=== PATIENT | male | born 1950 | race Caucasian/White ===

== ENCOUNTER 2021-12-19 11:28 | Emergency (ER) | payer MEDICARE, SELFPAY ==
--- NOTE | ~2021-12-19 | US_ITS ---
EXAMINATION: US VENOUS ULTRASOUND WITH DOPPLER LOWER EXTREMITY, RIGHT CLINICAL INFORMATION: Cold to touch, pain. COMPARISON: None TECHNIQUE: Ultrasound of the deep veins is performed from the hip to the calf with compression sonography and color and pulse Doppler assessment. Spectral analysis with color-flow imaging is performed. FINDINGS: There is normal venous compression and respiratory variation and augmented flow. The visualized common femoral vein, superficial femoral vein, profunda femoral vein, popliteal vein, and the trifurcation region shows no evidence of deep venous thrombosis. No right popliteal cyst. The subcutaneous soft tissues are unremarkable. US/US venous duplex LE RT IMPRESSION: No evidence for deep venous thrombosis in the visualized veins of the right lower extremity.
--- NOTE | ~2021-12-19 | US_ITS ---
EXAMINATION: Right LOWER EXTREMITY DUPLEX CLINICAL INFORMATION: Pain, cold touch COMPARISON: None TECHNIQUE: Real-time ultrasound and Doppler techniques (integrating B-mode 2-D vascular images, Doppler spectral analysis and color flow Doppler imaging) were utilized to interrogate the lower extremities. FINDINGS: RIGHT LEG: Common femoral artery: 136 cm/s, multiphasic Profunda femoris artery: 63.4 cm/s, multiphasic Superficial femoral artery (proximal): At the origin of the proximal superficial femoral artery peak systolic velocity 86.7 cm/s. There is multiphasic flow. Shortly thereafter, there is decreased velocity, loss of phasicity and minimal to no flow within the mid to distal femoral artery. There is gnosticist of flow to the popliteal artery with peak systolic velocity Proximal popliteal artery: 13.8 cm/s, monophasic Distal popliteal artery: 97.6 cm/s, monophasic Anterior tibial artery: No Doppler signal, possibly occluded Peroneal artery: No Doppler signal, possibly occluded US/US arterial duplex LE RT IMPRESSION: There is abrupt loss of Doppler signal beyond the level the proximal superficial femoral artery compatible with thrombosis/occlusion of the superficial femoral artery. There is some gnosticist of monophasic flow within the popliteal artery likely via collaterals, though Doppler signal cannot be visualized in the runoff vessels either secondary to limited inflow or occlusion.
[2021-12-19 11:33] VITALS: BP 152/74; PULSE 63; RESP 18; TEMP 37.2; O2SAT 97; BMI 18.1
[2021-12-19 13:11] VITALS: BP 169/65; PULSE 60; RESP 14; TEMP 36.5; O2SAT 97
[2021-12-19] MEDS: Morphine Sulfate 4 MG/ML CARTRIDGE IVPUSH ×2 (13:46→16:28)
--- NOTE | 2021-12-19 13:50 | ED.EXTPRO ---
HPI - Extremity Problem General Chief complaint: Extremity Problem Stated complaint: R foot pain/cold to touch Time Seen by Provider: 12/19/21 12:24 Source: patient Mode of arrival: ambulatory Limitations: no limitations History of Present Illness HPI Narrative: 71-year-old male who presents emergency department for evaluation right calf, right foot pain and coldness discoloration of his right foot. Patient has a history of peripheral vascular disease in in June of 2021. He was treated by Dr Collier, [facility] in June of 2021. He states that he had a two stents placed. The patient states that approximately 2 weeks prior he developed pain in his right calf and right foot. He describes the pain is a constant cramping sensation which waxes and wanes in intensity. The pain is 5/10 at its worst. MD Complaint: extremity pain Onset (ago): week(s) (2) Pain Consistency: constant Location: right Severity scale (1-10): 8 Quality: burning and aching Radiation: none Relieving factors: nothing Exacerbating factors: nothing Related Data Allergies Allergy/AdvReac Type Severity Reaction Status Date / Time No Known Allergies Allergy Unverified 03/13/20 17:14 [No Known Allergies*] Review of Systems Review of Systems: Yes all other systems are reviewed and are negative [facility] Past Medical History [facility] Narrative: Past medical history: Hypertension, hyperlipidemia, GERD, stroke 10 years prior. Social history: Patient is . He smokes 8 cigars per day. He drinks alcohol occasionally. He denies drug use. Social History Social History Advance Directives: No Advance Directives Information Provided: No Physical Exam Vital Signs: Vital Signs: Last Vital Signs Temp 97.7 F 12/19/21 13:11 Pulse 60 12/19/21 13:11 Resp 14 12/19/21 13:11 BP 169/65 H 12/19/21 13:11 Pulse Ox 97 12/19/21 13:11 O2 Del Method 12/19/21 13:11 BMI result Body Mass Index 17.2 Const: General: cooperative and no acute distress Orientation/consciousness: oriented to person and oriented to place Limitations: no limitations HEENT: Head: Yes normal to inspection, Yes normocephalic and Yes atraumatic Ears: external ears normal General nose exam: Normal external nose present Face and sinus: Yes normal facial exam Mouth: Normal oral and palatal mucosa present Throat: Yes posterior oropharynx normal Eyes: General: appearance normal, both eyes and all related structures Pupils: Equal, round and reactive pupils present Neck: Neck: Yes normal visual inspection, Yes no lymphadenopathy, Yes trachea midline and Yes supple Chest: Chest palpation & inspection: normal inspection of the chest and normal palpation of entire chest wall Resp: Effort & Inspection: normal respiratory effort and able to speak in complete sentences Auscultation: clear to auscultation bilaterally Cardio: Rate: regular rate Rhythm: regular rhythm Heart sounds: S1 normal heart sound present, S2 normal heart sound present and no murmurs GI: Inspection: Yes normal to inspection Palpation (GI): Soft to palpation, nontender and no guarding Auscultation: normal bowel sounds : General: Yes no CVA tenderness Back/Spine/Pelvis: Back: no CVA tenderness Skin: General skin exam: no rashes or lesions noted Neuro: General: oriented to person and oriented to place Cranial nerves: Yes CN's II-XII intact bilaterally and Yes Equal, round and reactive pupils present Cognition (Neuro): normal cognition Motor exam (neuro): 5/5 motor strength present throughout Extrem: Other: Patient has coolness to the lateral aspect of his right foot mainly over the right 4th and 5th toes with some slight discoloration of the right 5th toe, the whole foot is slightly cooler to touch than the left foot. No palpable pulses the patient's foot. Patient does have a palpable popliteal artery and palpable femoral artery bilaterally. Psych: Appearance: grossly normal Speech and movement: Normal speech and movement present Affect: normal affect Attitude: cooperative Thought process: Normal thought process present Thought content: Normal thought content present Course Course Course Narrative: 71-year-old male with history of peripheral vascular disease with 2 stents to his right leg done June [address] Brady Collier who presents emergency department for evaluation of right foot and right calf pain x2 weeks with coolness in his right foot compared to his left foot. The patient's vital signs revealed an elevated blood pressure of 152/74 otherwise were unremarkable. Patient's right foot was cool to the touch compared to the left with some slight discoloration of the right 5th toe. Laboratory evaluation including CBC, CMP, PT/INR, PTT, COVID-19 were ordered. Duplex venous ultrasound in duplex arterial ultrasound of the right lower extremity will be obtained. 1618: Laboratory evaluation: CBC revealed normal WBC 9200, normal H&H 15.2 and 43.7. PT/INR and PTT were normal. CMP was unremarkable except for an AST of 114. COVID-19 was negative. Radiology evaluation: Venous duplex ultrasound revealed no venous clot. Arterial duplex of the right lower extremity radiology impression below: There is abrupt loss of Doppler signal beyond the level the proximal superficial femoral artery compatible with thrombosis/occlusion of the superficial femoral artery. There is some jain of monophasic flow within the popliteal artery likely via collaterals, though Doppler signal cannot be visualized in the runoff vessels either secondary to limited inflow or occlusion. Dictated By: Guzman Kerr MD I did discuss the patient's presentation with our vascular surgeon, Dr. Smith who recommended the patient be started on heparin and transferred to a facility with vascular surgeon I also discuss the patient findings with Dr. Brady Collier who recommended that the patient be placed on heparin and transferred to either [facility]. I did contact [facility] at this time they cannot accept the patient in transfer. I did discuss the patient with Dr. Shay Chen, vascular surgeon at [facility] and he did accept the patient in transfer. The patient was given heparin and started on heparin bolus. He also received morphine 4 mg IV x2 L pain. He is also given a nicotine patch 21 mg. MDM - Extremity (Nontraumatic) Lab Data Result diagrams: 12/19/21 13:39 12/19/21 13:39 Labs: Lab Results 12/19/21 12/19/21 12/19/21 Range/Units 13:38 13:39 13:39 WBC 9.7 (4.8-10.8) X10*3/uL RBC 4.20 L (4.60-5.80) X10*6/uL Hgb 15.2 (14.0-18.0) g/dl Hct 43.7 (42.0-52.0) % MCV 104.0 H (80.0-98.0) fL MCH 36.2 H (27.0-33.0) pg MCHC 34.8 (31.0-36.0) g/dl RDW 17.1 H (11.0-16.0) % Plt Count 241 (160-400) X10*3/uL MPV 9.3 L (9.4-12.4) fL Immature Gran % (Auto) 0.6 H (0.0-0.4) % Neut % (Auto) 63.6 (45-73) % Lymph % (Auto) 19.9 L (20-40) % [place] % (Auto) 12.3 H (2-11) % Eos % (Auto) 2.6 (0-4) % Baso % (Auto) 1.0 (0-2) % Lymph # (Auto) 1.9 (1.2-4.9) X10*3/uL [place] # (Auto) 1.2 (0.1-1.2) X10*3/uL Eos # (Auto) 0.3 (0.0-0.4) X10*3/uL Baso # (Auto) 0.1 (0.0-0.2) X10*3/uL Abs Immat Gran (auto) 0.06 H (0.00-0.03) X10*3/uL Absolute Neuts (auto) 6.1 (2.0-8.3) x10*3/uL Absolute Nucleated RBC 0.000 (0.0-0.012) X10*3/uL Nucleated RBC % (auto) 0.0 (0.0-0.2) /100WBC ESR 10 (0-15) MM/HR PT (9.9-13.0) SEC INR (0.9-1.1) APTT (24.1-38.0) SEC Sodium 136 (135-145) mmol/L Potassium 4.9 (3.3-5.1) mmol/L Chloride 102 (96-108) mmol/L Carbon Dioxide 24 (22-29) mmol/L Anion Gap 15 (12-20) BUN 11 (9-16) mg/dL Creatinine 0.86 (0.5-1.4) mg/dL Estim Creat Clear Calc 66.6 Estimated GFR > 60 Random Glucose 100 (60-115) mg/dL Lactic Acid (0.5-2.0) mmol/L Calcium 9.6 (8.4-10.2) mg/dL Total Bilirubin 0.4 (0.0-1.0) mg/dL AST 114 H (5-37) U/L ALT 34 (0-40) U/L Alkaline Phosphatase 64 (39-117) U/L C-Reactive Protein 0.48 (< or = 0.50) mg/dL Total Protein 8.0 (6.5-8.0) g/dL Albumin 4.3 (3.5-5.0) g/dL COVID-19 (LEO) (Negative) COVID-19 Clin Com 12/19/21 12/19/21 12/19/21 Range/Units 13:39 14:40 15:07 WBC (4.8-10.8) X10*3/uL RBC (4.60-5.80) X10*6/uL Hgb (14.0-18.0) g/dl Hct (42.0-52.0) % MCV (80.0-98.0) fL MCH (27.0-33.0) pg MCHC (31.0-36.0) g/dl RDW (11.0-16.0) % Plt Count (160-400) X10*3/uL MPV (9.4-12.4) fL Immature Gran % (Auto) (0.0-0.4) % Neut % (Auto) (45-73) % Lymph % (Auto) (20-40) % [place] % (Auto) (2-11) % Eos % (Auto) (0-4) % Baso % (Auto) (0-2) % Lymph # (Auto) (1.2-4.9) X10*3/uL [place] # (Auto) (0.1-1.2) X10*3/uL Eos # (Auto) (0.0-0.4) X10*3/uL Baso # (Auto) (0.0-0.2) X10*3/uL Abs Immat Gran (auto) (0.00-0.03) X10*3/uL Absolute Neuts (auto) (2.0-8.3) x10*3/uL Absolute Nucleated RBC (0.0-0.012) X10*3/uL Nucleated RBC % (auto) (0.0-0.2) /100WBC ESR (0-15) MM/HR PT 11.6 (9.9-13.0) SEC INR 1.0 (0.9-1.1) APTT 33.4 (24.1-38.0) SEC Sodium (135-145) mmol/L Potassium (3.3-5.1) mmol/L Chloride (96-108) mmol/L Carbon Dioxide (22-29) mmol/L Anion Gap (12-20) BUN (9-16) mg/dL Creatinine (0.5-1.4) mg/dL Estim Creat Clear Calc Estimated GFR Random Glucose (60-115) mg/dL Lactic Acid 1.1 (0.5-2.0) mmol/L Calcium (8.4-10.2) mg/dL Total Bilirubin (0.0-1.0) mg/dL AST (5-37) U/L ALT (0-40) U/L Alkaline Phosphatase (39-117) U/L C-Reactive Protein (< or = 0.50) mg/dL Total Protein (6.5-8.0) g/dL Albumin (3.5-5.0) g/dL COVID-19 ([facility]O) Negative (Negative) COVID-19 Clin Com See Note Critical Care Time Critical Care Time Critical Care Time: Yes Total Critical Care Time: 35 Attestation: Critical Care: The patient was critically ill with a high probability of imminent or life threatening deterioration. I spent greater than 30 minutes of discontinuous time evaluating the patient,delivering critical care at the bedside, discussing and evaluating pertinent data with consultants. Critical care time does not include time spent performing separately billable procedures or teaching. Total time spent performing critical care was 35 minutes. Discharge Plan Discharge Clinical Impression: Superficial femoral artery occlusion, Acute pain of right lower extremity, Acute pain of right foot Patient Disposition: [facility] Transfer Details: ED to medical/surgical floor [facility], excepting physician is Dr. Shay Chen
[2021-12-19 13:55] LABS: MANUAL DIFF FLAG NO
[2021-12-19 13:57] LABS: Basophils Absolute Auto 0.1 X10*3/uL (0.0-0.2); Eosinophils Absolute Auto 0.3 X10*3/uL (0.0-0.4); Eosinophils Percent Auto 2.6 % (0-4); Hematocrit 43.7 % (42.0-52.0); Hemoglobin 15.2 g/dl (14.0-18.0); Imm Gran Abs Auto 0.06 X10*3/uL (0.00-0.03); Imm Gran Pct Auto 0.6 % (0.0-0.4); Lymphocytes Absolute Auto 1.9 X10*3/uL (1.2-4.9); Lymphocytes Percent Auto 19.9 % (20-40); Mean Corpuscular HGB Conc 34.8 g/dl (31.0-36.0); Mean Corpuscular Hemoglobin 36.2 pg (27.0-33.0); Mean Platelet Volume 9.3 fL (9.4-12.4); Monocytes Absolute Auto 1.2 X10*3/uL (0.1-1.2); Monocytes Percent Auto 12.3 % (2-11); Neutrophils Absolute Auto 6.1 x10*3/uL (2.0-8.3); Neutrophils Percent Auto 63.6 % (45-73); Platelet Count 241 X10*3/uL (160-400); Red Cell Distribution Width 17.1 % (11.0-16.0); White Blood Count 9.7 X10*3/uL (4.8-10.8)
[2021-12-19 14:01] LABS: Lactic Acid 1.1 mmol/L (0.5-2.0)
[2021-12-19 14:10] LABS: Alanine Aminotransferase 34 U/L (0-40); Albumin Level 4.3 g/dL (3.5-5.0); Alkaline Phosphatase 64 U/L (39-117); Anion Gap 15 (12-20); Aspartate Amino Transferase 114 U/L (5-37); Bilirubin Total 0.4 mg/dL (0.0-1.0); Blood Urea Nitrogen 11 mg/dL (9-16); C Reactive Protein 0.48 mg/dL (< or = 0.50); Calcium 9.6 mg/dL (8.4-10.2); Carbon Dioxide 24 mmol/L (22-29); Chloride 102 mmol/L (96-108); Creatinine Clr Calc Pharmacy 66.6; Estimated Glomerular Filt Rate > 60; Glucose Random 100 mg/dL (60-115); Potassium 4.9 mmol/L (3.3-5.1); Sodium 136 mmol/L (135-145)
[2021-12-19 14:36] LABS: Erythrocyte Sedimentation Rate 10 MM/HR (0-15)
[2021-12-19 15:04] LABS: Prothrombin Time 11.6 SEC (9.9-13.0)
--- NOTE | 2021-12-19 15:06 | PC.NURSE ---
Pt A&Ox4. Pt call [facility] in reach and needs are being met.
[2021-12-19 15:07] LABS: Partial Thromboplastin Time 33.4 SEC (24.1-38.0)
[2021-12-19 15:26] LABS: IDNOW Serial# 16C4AD1C
[2021-12-19 15:27] LABS: COVID-19 Test Negative (Negative)
[2021-12-19 15:28] VITALS: BMI 17.2
[2021-12-19] MEDS: Heparin Sodium,Porcine 5,000 UNIT/ML VIAL 4700 UNIT IVPUSH (15:36)
[2021-12-19] MEDS: Heparin Sodium,Porcine/1/2NS 25,000 UNIT/250 ML IV.SOLN 7.92 UNIT IVCONT (15:46)
[2021-12-19] MEDS: Nicotine 21 MG PATCH.TD24 TRANSDERMA (16:30)
--- NOTE | 2021-12-19 16:36 | ECG_ITS ---
Test Reason : TRANFER Blood Pressure : / mmHG Vent. Rate : 056 BPM Atrial Rate : 056 BPM P-R Int : 166 ms QRS Dur : 076 ms QT Int : 430 ms P-R-T Axes : 071 -23 066 degrees QTc Int : 414 ms Sinus bradycardia Possible Left atrial enlargement Borderline ECG When compared with ECG of 03-OCT-2014 08:46, No significant change was found Referred By: Luis Valencia Electronically Signed By:DAKOTA MONTANA MD
[2021-12-19 16:37] VITALS: BP 146/78; PULSE 63; RESP 20; TEMP 36.9; O2SAT 97
--- NOTE | 2021-12-19 16:43 | PC.NURSE ---
Patient alert and oriented x 3. ambulates independently at home. Patient started on heparin drip at 14units/kg/hr weight 56.6kg. Patient c/o pain in right lower leg 6/10 medicated with morphine awaiting relief. tele: sinus robin-sinus rythym 59-60's Patient instructed not to ambulate with DVT. Patient being transferred to [facility] M6 report called to Ayan BRADSHAW awaiting ambulance for transport.
--- NOTE | 2021-12-19 17:39 | PC.NURSE ---
This [employer] called [facility] tx line at 1550 per .awaiting a call back.At 1620 accepted pt,awaiting a call back from bed placement for a room assignment. Beds called at 1652,pt is going to M6 room 121B. [facility] was called for a ALS transfer at 1720,per . AT 1734 Guillermina from [facility] called and stated she has to pass the call to [facility], Awaiting ems arrival with an ETA of 20 to 35 mins per Guillermina from [facility]. and RN aware
--- NOTE | 2021-12-19 19:03 | PC.NURSE ---
At 1903 Pankaj came to transfer pt to [place] [address] room [address]B.
== END 2021-12-19 19:18 | disposition short-term general hospital (02) ==
PROVIDERS: Emergency Provider Emergency Medicine Emergency Medical Services; PCP Internal Medicine
DX: I77.1 Stricture of artery (principal); R60.0 Localized edema; M79.604 Pain in right leg; M79.671 Pain in right foot; Z20.822 Contact with and (suspected) exposure to COVID-19; Z79.899 Other long term (current) drug therapy
CPT/HCPCS: 36415; 80053; 83605; 85025; 85610; 85652; 85730; 86140; 87635; 93005; 93926; 93971; 96365; 96375; 96376; 99285; J2270

== ENCOUNTER 2025-02-08 08:17 | Emergency (ER) | payer MEDICARE, SELFPAY ==
--- OUTSIDE RECORDS SUMMARY | 2024-09-05 05:18 | XMS_ITS | Continuity of Care Document ---
Author Organization [facility]. If a dditional information is needed, contact Health Information Management at [phone] [place] [address] Phone Care Team Providers Care Cytotechnologist Name Role Phone Unavailable Unavailable Unavailable Unavailable Unavailable Unavailable Unavailable Unavailable Unavailable Unavailable Unavailable Unavailable Unavailable Unavailable Unavailable Unavailable Unavailable Results PROTHROMBIN TIME Ordered On:05-Sep-2024 Comments :FAX: [phone] 05-Sep-2024 10:03 INTERNATIONAL NORMAL IZED RATIO3.8(High) Range:0.8-1.1 Comments:Use INR for clinical decision makingRecommended Therapeutic Range:INDICATION TARGETED INR RANGEOn-x value (aortic position) 1.5-2.0Prevention and treatment of VTE 2.0-3.0Atrial Fibrillation 2.0-3.0Acute myocardial infarction 2.0-3.0Valvular heart disease 2.0-3.0Prosthetic tissue heart valves 2.5-3.5Recurrent Thromboembolism 2.5-3.5Targeted INR range of 2-3 is appropriate for patients whohave a mechanical bileaflet in the aortic position, normalcardiac chamber size, and no other risk factors for stroke.Co-administration of argatroban and warfarin produces acombined effect on INR. Consult pharmacist or physician todetermine if warfarin dose should be held when INR iselevated and patient is receiving argatroban. RZHAOLG72.9{Seconds}(High) Range :10{Seconds}-12.8{Seconds} Comments:New methodology, please review new reference ranges. PROTHROMBIN TIME Ordered On:30-Aug-2024 Comments: FAX: [phone] 30-Aug-2024 09:07 BYCMUXE13.5{Seconds}(High) Rang e:10{Seconds}-12.8{Seconds} Comments:New methodology, please review new reference ranges. INTERNATIONAL NORMAL IZED RATIO1.8(High) Range:0.8-1.1 Comments:Use INR for clinical decision makingRecommended Therapeutic Range:INDICATION TARGETED INR RANGEOn-x value (aortic position) 1.5-2.0Prevention and treatment of VTE 2.0-3.0Atrial Fibrillation 2.0-3.0Acute myocardial infarction 2.0-3.0Valvular heart disease 2.0-3.0Prosthetic tissue heart valves 2.5-3.5Recurrent Thromboembolism 2.5-3.5Targeted INR range of 2-3 is appropriate for patients whohave a mechanical bileaflet in the aortic position, normalcardiac chamber size, and no other risk factors for stroke.Co-administration of argatroban and warfarin produces acombined effect on INR. Consult pharmacist or physician todetermine if warfarin dose should be held when INR iselevated and patient is receiving argatroban. PROTHROMBIN TIME Ordered On:22-Aug-2024 08:51 INTERNATIONAL NORMAL IZED RATIO3.0(High) Range:0.8-1.1 Comments:Use INR for clinical decision makingRecommended Therapeutic Range:INDICATION TARGETED INR RANGEOn-x value (aortic position) 1.5-2.0Prevention and treatment of VTE 2.0-3.0Atrial Fibrillation 2.0-3.0Acute myocardial infarction 2.0-3.0Valvular heart disease 2.0-3.0Prosthetic tissue heart valves 2.5-3.5Recurrent Thromboembolism 2.5-3.5Targeted INR range of 2-3 is appropriate for patients whohave a mechanical bileaflet in the aortic position, normalcardiac chamber size, and no other risk factors for stroke.Co-administration of argatroban and warfarin produces acombined effect on INR. Consult pharmacist or physician todetermine if warfarin dose should be held when INR iselevated and patient is receiving argatroban. UPDMSVV27.3{Seconds}(High) Range :10{Seconds}-12.8{Seconds} Comments:New methodology, please review new reference ranges. PROTHROMBIN TIME Ordered On:15-Aug-2024 08:59 INTERNATIONAL NORMAL IZED RATIO1.5(High) Range:0.8-1.1 Comments:Use INR for clinical decision makingRecommended Therapeutic Range:INDICATION TARGETED INR RANGEOn-x value (aortic position) 1.5-2.0Prevention and treatment of VTE 2.0-3.0Atrial Fibrillation 2.0-3.0Acute myocardial infarction 2.0-3.0Valvular heart disease 2.0-3.0Prosthetic tissue heart valves 2.5-3.5Recurrent Thromboembolism 2.5-3.5Targeted INR range of 2-3 is appropriate for patients whohave a mechanical bileaflet in the aortic position, normalcardiac chamber size, and no other risk factors for stroke.Co-administration of argatroban and warfarin produces acombined effect on INR. Consult pharmacist or physician todetermine if warfarin dose should be held when INR iselevated and patient is receiving argatroban. HFDKSCI11.5{Seconds}(High) Range :10{Seconds}-12.8{Seconds} Comments:New methodology, please review new reference ranges. PROTHROMBIN TIME Ordered On:30-Jul-2024 08:32 INTERNATIONAL NORMAL IZED RATIO3.3(High) Range:0.8-1.1 Comments:Use INR for clinical decision makingRecommended Therapeutic Range:INDICATION TARGETED INR RANGEOn-x value (aortic position) 1.5-2.0Prevention and treatment of VTE 2.0-3.0Atrial Fibrillation 2.0-3.0Acute myocardial infarction 2.0-3.0Valvular heart disease 2.0-3.0Prosthetic tissue heart valves 2.5-3.5Recurrent Thromboembolism 2.5-3.5Targeted INR range of 2-3 is appropriate for patients whohave a mechanical bileaflet in the aortic position, normalcardiac chamber size, and no other risk factors for stroke.Co-administration of argatroban and warfarin produces acombined effect on INR. Consult pharmacist or physician todetermine if warfarin dose should be held when INR iselevated and patient is receiving argatroban. VNUTGMV63.2{Seconds}(High) Range :10{Seconds}-12.8{Seconds} Comments:New methodology, please review new reference ranges. PROTHROMBIN TIME Ordered On:16-Jul-2024 09:11 INTERNATIONAL NORMAL IZED RATIO2.6(High) Range:0.8-1.1 Comments:Use INR for clinical decision makingRecommended Therapeutic Range:INDICATION TARGETED INR RANGEOn-x value (aortic position) 1.5-2.0Prevention and treatment of VTE 2.0-3.0Atrial Fibrillation 2.0-3.0Acute myocardial infarction 2.0-3.0Valvular heart disease 2.0-3.0Prosthetic tissue heart valves 2.5-3.5Recurrent Thromboembolism 2.5-3.5Targeted INR range of 2-3 is appropriate for patients whohave a mechanical bileaflet in the aortic position, normalcardiac chamber size, and no other risk factors for stroke.Co-administration of argatroban and warfarin produces acombined effect on INR. Consult pharmacist or physician todetermine if warfarin dose should be held when INR iselevated and patient is receiving argatroban. BPKXIFI14.0{Seconds}(High) Range :10{Seconds}-12.8{Seconds} Comments:New methodology, please review new reference ranges. PROTHROMBIN TIME Ordered On:09-Jul-2024 09:14 INTERNATIONAL NORMAL IZED RATIO2.2(High) Range:0.8-1.1 Comments:Use INR for clinical decision makingRecommended Therapeutic Range:INDICATION TARGETED INR RANGEOn-x value (aortic position) 1.5-2.0Prevention and treatment of VTE 2.0-3.0Atrial Fibrillation 2.0-3.0Acute myocardial infarction 2.0-3.0Valvular heart disease 2.0-3.0Prosthetic tissue heart valves 2.5-3.5Recurrent Thromboembolism 2.5-3.5Targeted INR range of 2-3 is appropriate for patients whohave a mechanical bileaflet in the aortic position, normalcardiac chamber size, and no other risk factors for stroke.Co-administration of argatroban and warfarin produces acombined effect on INR. Consult pharmacist or physician todetermine if warfarin dose should be held when INR iselevated and patient is receiving argatroban. VLJDAAM00.7{Seconds}(High) Range :10{Seconds}-12.8{Seconds} Comments:New methodology, please review new reference ranges. PROTHROMBIN TIME Ordered On:06-Jul-2024 Comments :FAX: [phone] 06-Jul-2024 10:50 INTERNATIONAL NORMAL IZED RATIO5.8(Critical High) Range:0.8-1.1 Comments:CALLED RESULTS TO FRANK HENDERSON AT 1050BY IRLAMP2 ON 07/06/24.Were the results read back to the tech? YUse INR for clinical decision makingRecommended Therapeutic Range:INDICATION TARGETED INR RANGEOn-x value (aortic position) 1.5-2.0Prevention and treatment of VTE 2.0-3.0Atrial Fibrillation 2.0-3.0Acute myocardial infarction 2.0-3.0Valvular heart disease 2.0-3.0Prosthetic tissue heart valves 2.5-3.5Recurrent Thromboembolism 2.5-3.5Targeted INR range of 2-3 is appropriate for patients whohave a mechanical bileaflet in the aortic position, normalcardiac chamber size, and no other risk factors for stroke.Co-administration of argatroban and warfarin produces acombined effect on INR. Consult pharmacist or physician todetermine if warfarin dose should be held when INR iselevated and patient is receiving argatroban. HASTUWL37.0{Seconds}(High) Range :10{Seconds}-12.8{Seconds} Comments:New methodology, please review new reference ranges. Encounters Ambulatory Encounter Reason:z86.19 PRSNL HX OF TIA (TIA), AND CEREB INFRC W Encounter Diagnosis:Personal history of transient ischemic attack (TIA), and cerebral infarction without residual deficits 05-Sep-2024 09:[id number] 09:18 [facility] Discharge Disposition:Discharged to home or self care (routine discharge) Ambulatory Encounter Reason:Z86.73 PRSNL HX OF TIA (TIA), AND CEREB INFRC Encounter Diagnosis:[facility] (current) use of anticoagulants,Personal history of transient ischemic attack (TIA), and cerebral infarction without residual deficits 30-Aug-2024 08:[id number] 08:12 [facility] Discharge Disposition:Discharged to home or self care (routine discharge) Ambulatory Encounter Reason:LAB / ROUTINE Encounter Diagnosis:Personal history of transient ischemic attack (TIA), and cerebral infarction without residual deficits 22-Aug-2024 08:[id number] 08:07 [facility] Discharge Disposition:Discharged to home or self care (routine discharge) Ambulatory Encounter Reason:Z86.73 PRSNL HX OF TIA (TIA), AND CEREB INFRC Encounter Diagnosis:[facility] (current) use of anticoagulants,Personal history of transient ischemic attack (TIA), and cerebral infarction without residual deficits 15-Aug-2024 08:[id number] 08:07 [facility] Discharge Disposition:Discharged to home or self care (routine discharge) Ambulatory Encounter Reason:LAB Encounter Diagnosis:Peripheral vascular disease, unspecified,[facility] (current) use of anticoagulants,Unspecified sequelae of unspecified cerebrovascular disease,Encounter for therapeutic drug level monitoring 30-Jul-2024 08:[id number] 08:21 [facility] Discharge Disposition:Discharged to home or self care (routine discharge) Ambulatory Encounter Reason:LAB Encounter Diagnosis:[facility] (current) use of anticoagulants,Unspecified sequelae of unspecified cerebrovascular disease,Peripheral vascular disease, unspecified,Encounter for therapeutic drug level monitoring 16-Jul-2024 08:[id number] 08:42 [facility] Discharge Disposition:Discharged to home or self care (routine discharge) Ambulatory Encounter Reason:Z51.81 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:Personal history of transient ischemic attack (TIA), and cerebral infarction without residual deficits,exterminator (current) use of anticoagulants 09-Jul-2024 08:[id number] 08:35 [facility] Discharge Disposition:Discharged to home or self care (routine discharge) Ambulatory Encounter Reason:Z51.81 Z79.01 I69.90 I73.9 PERIPHERAL VASCULA Encounter Diagnosis:[facility] (current) use of anticoagulants,Personal history of transient ischemic attack (TIA), and cerebral infarction without residual deficits 06-Jul-2024 09:[id number] 09:22 [facility] Discharge Disposition:Discharged to home or self care (routine discharge) pre-admission 26-Sep-2023 08:00 [facility] pre-admission 28-Jul-2023 00:08 [facility] pre-admission 25-Oct-2022 08:30 [facility] pre-admission 25-Sep-2022 08:30 [facility] pre-admission 16-Sep-2022 09:00 [facility]
--- NOTE | ~2025-02-08 | XR_ITS ---
EXAMINATION: XR CHEST CLINICAL INFORMATION: sob COMPARISON: October 13, 2014 TECHNIQUE: Frontal view of the chest was obtained. FINDINGS: Hyperinflated lungs. Pulmonary reticular pattern. No consolidation, pleural fissure pneumothorax. Cardiomediastinal silhouette size is small. Mild multilevel thoracic spondylosis no fully evaluated. S-shaped curvature of the axial skeleton. XR/XR chest 1V IMPRESSION: COPD emphysematous type changes without gross acute airspace disease. Electronically signed by: Alfie Rodriguez MD 02/08/2025 08:43 AM EDT
--- NOTE | ~2025-02-08 | CT_ITS ---
EXAMINATION: CT CHEST ANGIOGRAPHY WITH IV CONTRAST INDICATION: sob + dimer COMPARISON: Comparison is made with the prior examination dated 10/03/2014. TECHNIQUE: Helical CT scan of the chest was performed following administration of intravenous contrast (65 mL Omnipaque 350). The contrast bolus was timed to optimally opacify the pulmonary arteries. Thin sections were obtained through the pulmonary arteries. Coronal and sagittal reformatted images were generated. 3D/MIP reconstructed images are also obtained and reviewed. This CT exam was performed with one or more of the following dose reduction techniques: automated exposure control, adjustment of the mA and/or kV according to patient size, use of iterative reconstruction technique. DLP: 164 mGy-cm CHEST: THYROID: The thyroid gland is unremarkable. PULMONARY ARTERIES: No intraluminal filling defects are identified within the pulmonary arteries to suggest pulmonary emboli. LUNGS: There is severe emphysema. No pulmonary nodules or airspace opacities are identified. MEDIASTINUM: There is no mediastinal lymphadenopathy. JERONIMO: There is no hilar lymphadenopathy. CARDIOVASCULATURE: The heart is normal in size. There is no pericardial effusion. The thoracic aorta is normal in caliber. DEGREE OF CORONARY CALCIFICATION: not evaluable, due to dense contrast in the coronary arteries. PLEURA: There is no pleural effusion. No pneumothorax. MAIN AIRWAYS: The mainstem bronchi and proximal branches are patent. AXILLA: There is no axillary lymphadenopathy. UPPER ABDOMEN: The visualized portions of the liver, spleen, and adrenals are unremarkable. BONES AND SOFT TISSUES: Unremarkable. CT/CT angio chest PE protocol IMPRESSION: 1. No evidence of pulmonary emboli. 2. Severe emphysema. Because severe emphysema is an independent risk factor for lung cancer, consider entering the patient into a program of yearly lung cancer screening with low dose chest CT. Electronically signed by: Mitchell Hoyos MD 02/08/2025 12:47 PM EDT
--- NOTE | 2025-02-08 08:22 | ECG_ITS ---
Test Reason : CP,SOB Blood Pressure : */* mmHG Vent. Rate : 62 BPM Atrial Rate : 62 BPM P-R Int : 158 ms QRS Dur : 80 ms QT Int : 408 ms P-R-T Axes : 81 -8 73 degrees QTcB Int : 414 ms Normal sinus rhythm Possible Left atrial enlargement Low voltage QRS Borderline ECG When compared with ECG of 19-Dec-2021 16:46, No significant change was found Referred By: Generic ED Physician Electronically Signed By: Cole Newsome
[2025-02-08 08:30] VITALS: PULSE 64; RESP 18; TEMP 36.6; O2SAT 99; BMI 16.1
[2025-02-08 08:57] LABS: MANUAL DIFF FLAG NO
[2025-02-08 08:59] LABS: Hematocrit 49.0 % (42.0-52.0); Hemoglobin 16.6 g/dl (14.0-18.0); Imm Gran Abs Auto 0.03 X10*3/uL (0.00-0.03); Imm Gran Pct Auto 0.3 % (0.0-0.4); Lymphocytes Absolute Auto 2.9 X10*3/uL (1.2-4.9); Mean Corpuscular HGB Conc 33.9 g/dl (31.0-36.0); Mean Corpuscular Hemoglobin 32.6 pg (27.0-33.0); Mean Corpuscular Volume 96.3 fL (80.0-98.0); NRBC Abs Auto 0.000 X10*3/uL (0.0-0.012); NRBC Pct Auto 0.0 /100WBC (0.0-0.2); Platelet Count 184 X10*3/uL (160-400); Red Blood Count 5.09 X10*6/uL (4.60-5.80); White Blood Count 10.3 X10*3/uL (4.8-10.8)
[2025-02-08 09:06] LABS: INTERNATIONAL NORM RATIO 3.7 (0.9-1.1); Prothrombin Time 42.6 SEC (10.9-12.4)
[2025-02-08 09:17] LABS: Alanine Aminotransferase 19 U/L (0-40); Albumin Level 4.5 g/dL (3.5-5.0); Alkaline Phosphatase 66 U/L (39-117); Anion Gap 14 (12-20); Aspartate Amino Transferase 36 U/L (5-37); Blood Urea Nitrogen 17 mg/dL (9-16); Calcium 9.4 mg/dL (8.4-10.2); Carbon Dioxide 27 mmol/L (22-29); Chloride 100 mmol/L (96-108); Creatinine Clr Calc Pharmacy 42.5; Estimated Glomerular Filt Rate > 60; Magnesium 1.9 mg/dL (1.6-2.6); Potassium 4.0 mmol/L (3.3-5.1); Sodium 137 mmol/L (135-145); Total Protein 8.1 g/dL (6.5-8.0)
--- OUTSIDE RECORDS SUMMARY | 2025-02-08 09:24 | XMS_ITS ---
Author Name [facility] Organization Unknown Care Team Organization Name Specialty Phone Email Start Date End Da te [facility] 03/03/2023 4 [facility] 05/04/2022 4
[2025-02-08 09:26] LABS: Troponin-I High Sensitivity 3.8 ng/L (<3.5-35.0)
[2025-02-08 09:29] LABS: B Type Natriuretic Peptide 94 pg/mL (<100)
--- NOTE | 2025-02-08 09:41 | ED_ITS ---
HPI - General Adult General Chief complaint: General Medical Stated complaint: CP, sob loss of apatite Time Seen by Provider: 02/08/25 08:41 Source: patient and family Mode of arrival: ambulatory Limitations: no limitations History of Present Illness ED Provider: CAMDEN Andrade HPI narrative: This is a 75-year-old male presenting with chest congestion, shortness of breath worse with exertion, fatigue, malaise, myalgia and diarrhea ongoing for the past 2 weeks. Denies sick contacts. Overall feeling unwell. Reports he is only drinking fluids however not eating anything by mouth. He denies fevers, chills, urinary issues, abdominal pain, flank pain, vision changes, dizziness, neck pain. Related Data Previous Rx's ?Medication ?Instructions ?Recorded albuterol sulfate 90 mcg/actuation 2 inh inhalation Q4 -6H PRN 02/08/25 breath activated powder inhaler shortness of breath or wheezing #1 ea doxycycline hyclate 100 mg capsule 100 mg PO BID 10 da ys #20 caps 02/08/25 prednisone 20 mg tablet 40 mg (2 x 20 mg) PO DAILY 5 days 02/08/25 #10 tabs Allergies Allergy/AdvReac Type Severity Reaction Status Date / Time No Known Allergies (No Known Allergy Verified 02/08/25 08:32 Allergies*) Review of Systems 2 Review of Systems: Yes all other systems are reviewed and are negative PMFSH Past Medical History Attestation statement: The following information was validated with the patient. Source: old records reviewed and nursing notes reviewed Social History Social History Alcohol intake: former Smoked in Last 30 Days: No Use of substances other than those prescribed or required for medical reasons: No Advance Directives: No Advance Directives Information Provided: Yes Do you have a plan to hurt others: No Plan Physical Exam ED Exam Exam: Appearance: Alert.? Oriented X3.? No acute distress.? Head: Normocephalic, atraumatic, no step-offs or deformities Eyes: Pupils equal, round and reactive to light.? ENT: Pharynx normal.? Neck: Normal inspection.? Neck supple.? CVS: Normal heart rate and rhythm.? Pulses normal.? Respiratory: No respiratory distress.? Breath sounds diminished bilaterally.? Abdomen: Soft and nontender.? Skin: Skin warm and dry.? Normal skin color.? Normal skin turgor.? Extremities: No lower extremity edema.? No calf ttp. 5/5 strength to bilateral upper and lower extremities Back: No midline tenderness, no C-spine tenderness, full range of motion, no CVA tenderness bilaterally Neuro: Oriented X 3.? No motor deficit.? No sensory deficit. CN 2-12 intact Vital Signs: Vital Signs - 24 hr 02/08/25 08:30 02/08/25 11:26 02/08/25 14:13 Temperature 97.8 F 97.5 F 97.1 F Pulse Rate 64 51 56 Respiratory Rate 18 16 17 Blood Pressure 162/73 H 149/85 H Pulse Oximetry 99 98 98 Oxygen Delivery Method Room Air Room Air Room Air BMI result Body Mass Index 16.1 Vital signs stable Course Reevaluation(s) Reevaluation #1: CBC unremarkable. Chemistry with slight elevation in BUN and creatinine likely secondary to poor p.o. intake/dehydration. D-dimer elevated CTA ordered urine clean. Urine toxicology negative. Ethanol negative. Chest x-ray showing COPD emphysematous changes without gross acute airspace disease. Time: 09:00 Reevaluation #2: Patient receiving IV fluids. Time: 10:30 Reevaluation #3: Chest CTA with no evidence of pulmonary emboli. Severe emphysema. Severe emphysema independent risk factor for lung cancer patient advised to follow up with PCP for this. His repeat chemistries much improved. Will have him follow up with PCP for this as well. Will treat him for bronchitis as he has been having upper respiratory symptoms for a few weeks. Time: 14:38 Medications Administered Discontinued Medications Generic Name Dose Route Start Last Admin Trade Name Clif PRN Reason Stop Dose Admin Sodium Chloride 1,000 mls @ 999 mls/hr 02/08/25 10:30 02/08/25 12:10 Ns IV 02/08/25 11:30 Infused .Q1H1M KITA Infusion Sodium Chloride 1,000 mls @ 999 mls/hr 02/08/25 13:00 02/08/25 14:22 Ns IV 02/08/25 14:00 Infused .Q1H1M KITA Infusion Iohexol 100 ml 02/08/25 12:22 02/08/25 12:22 Iohexol 350 Mg/Ml 100 Ml Infus..Btl IV 02/08/25 12:23 85 ml ONCE ONE Administration Medical Decision Making Medical Decision Making [facility] Narrative: 0950 75-year-old male presents with shortness of breath, chest congestion ongoing for the past few weeks. Physical exam diminished breath sounds bilaterally. History and physical exam concerning for viral illness versus COPD versus PE. Unlikely ACS, dissection. Will rule out metabolic derangements. Plan labs, viral testing, imaging. Differential Diagnosis Differential Diagnoses: The differential diagnosis associated with the presentation includes (History and physical exam concerning for viral illness versus COPD versus PE. Unlikely ACS, dissection. Will rule out metabolic derangements.) Admission/Observation Consideration of admission/observation: Escalation of care including admission/observation considered (Possible) Lab Data [facility] Lab Attestation statement: I reviewed the patient's lab results. 02/08/25 08:50 02/08/25 13:35 Labs: Lab Results 02/08/25 02/08/25 02/08/25 Range/Units 08:50 08:50 12:19 WBC 10.3 (4.8-10.8) X10*3/uL RBC 5.09 D (4.60-5.80) X10*6/uL Hgb 16.6 (14.0-18.0) g/dl Hct 49.0 (42.0-52.0) % MCV 96.3 (80.0-98.0) fL MCH 32.6 (27.0-33.0) pg MCHC 33.9 (31.0-36.0) g/dl RDW 14.6 (11.0-16.0) % Plt Count 184 (160-400) X10*3/uL MPV 9.9 (9.4-12.4) fL Immature Gran % (Auto) 0.3 (0.0-0.4) % Neut % (Auto) 58.2 (45-73) % Lymph % (Auto) 28.4 (20-40) % [place] % (Auto) 10.7 (2-11) % Eos % (Auto) 1.4 (0-4) % Baso % (Auto) 1.0 (0-2) % Lymph # (Auto) 2.9 (1.2-4.9) X10*3/uL [place] # (Auto) 1.1 (0.1-1.2) X10*3/uL Eos # (Auto) 0.1 (0.0-0.4) X10*3/uL Baso # (Auto) 0.1 (0.0-0.2) X10*3/uL Abs Immat Gran (auto) 0.03 (0.00-0.03) X10*3/uL Absolute Neuts (auto) 6.0 (2.0-8.3) x10*3/uL Absolute Nucleated RBC 0.000 (0.0-0.012) X10*3/uL Nucleated RBC % (auto) 0.0 (0.0-0.2) /100WBC PT 42.6 H (10.9-12.4) SEC INR 3.7 H D (0.9-1.1) D-Dimer High Sensitivty 460 NG/ML Sodium 137 (135-145) mmol/L Potassium 4.0 (3.3-5.1) mmol/L Chloride 100 (96-108) mmol/L Carbon Dioxide 27 (22-29) mmol/L Anion Gap 14 (12-20) BUN 17 H (9-16) mg/dL Creatinine 1.13 (0.5-1.4) mg/dL Estim Creat Clear Calc 42.5 Estimated GFR > 60 Random Glucose 98 (60-115) mg/dL Calcium 9.4 (8.4-10.2) mg/dL Magnesium 1.9 (1.6-2.6) mg/dL Total Bilirubin 0.8 (0.0-1.0) mg/dL AST 36 (5-37) U/L ALT 19 (0-40) U/L Alkaline Phosphatase 66 (39-117) U/L Total Creatine Kinase 226 H Cancelled (38-174) U/L Troponin I High Sens 3.8 (<3.5-35.0) ng/L B-Natriuretic Peptide 94 (<100) pg/mL Total Protein 8.1 H (6.5-8.0) g/dL Albumin 4.5 (3.5-5.0) g/dL Urine Color Urine Appearance Urine pH (5.0-9.0) Ur Specific [place] (1.005-1.025) Urine Protein (Neg-Trace) mg/dL Urine Glucose (UA) (Negative) mg/dL Urine Ketones (Negative) mg/dL Urine Blood (Negative) Urine Nitrite (Negative) Ur Leukocyte Esterase (Negative) Urine Opiates Screen (Not Detect) Ur Buprenorphine Scrn (Not Detect) ng/mL Ur Oxycodone Screen (Not Detect) ng/mL Urine Methadone Screen (Not Detect) ng/mL Urine Fentanyl Screen (Not Detect) Ur Barbiturates Screen (Not Detect) Ur Phencyclidine Scrn (Not Detect) Ur Amphetamines Screen (Not Detect) U Benzodiazepines Scrn (Not Detect) Urine Cocaine Screen (Not Detect) U Marijuana (THC) Screen (Not Detect) Ethyl Alcohol < 10 mg/dL Influenza Type A (PCR) NEGATIVE (Negative) Influenza Type B (PCR) NEGATIVE (Negative) RSV RNA Qual (PCR) NEGATIVE (Negative) SARS-CoV-2 RNA (RT-PCR) NEGATIVE (Negative) 02/08/25 02/08/25 Range/Units 12:44 13:35 WBC (4.8-10.8) X10*3/uL RBC (4.60-5.80) X10*6/uL Hgb (14.0-18.0) g/dl Hct (42.0-52.0) % MCV (80.0-98.0) fL MCH (27.0-33.0) pg MCHC (31.0-36.0) g/dl RDW (11.0-16.0) % Plt Count (160-400) X10*3/uL MPV (9.4-12.4) fL Immature Gran % (Auto) (0.0-0.4) % Neut % (Auto) (45-73) % Lymph % (Auto) (20-40) % [place] % (Auto) (2-11) % Eos % (Auto) (0-4) % Baso % (Auto) (0-2) % Lymph # (Auto) (1.2-4.9) X10*3/uL [place] # (Auto) (0.1-1.2) X10*3/uL Eos # (Auto) (0.0-0.4) X10*3/uL Baso # (Auto) (0.0-0.2) X10*3/uL Abs Immat Gran (auto) (0.00-0.03) X10*3/uL Absolute Neuts (auto) (2.0-8.3) x10*3/uL Absolute Nucleated RBC (0.0-0.012) X10*3/uL Nucleated RBC % (auto) (0.0-0.2) /100WBC PT (10.9-12.4) SEC INR (0.9-1.1) D-Dimer High Sensitivty NG/ML Sodium 136 (135-145) mmol/L Potassium 4.8 (3.3-5.1) mmol/L Chloride 104 (96-108) mmol/L Carbon Dioxide 24 (22-29) mmol/L Anion Gap 13 (12-20) BUN 13 (9-16) mg/dL Creatinine 0.97 (0.5-1.4) mg/dL Estim Creat Clear Calc 49.5 Estimated GFR > 60 Random Glucose 128 H (60-115) mg/dL Calcium 8.3 L D (8.4-10.2) mg/dL Magnesium (1.6-2.6) mg/dL Total Bilirubin 0.7 (0.0-1.0) mg/dL AST 29 (5-37) U/L ALT 14 (0-40) U/L Alkaline Phosphatase 52 (39-117) U/L Total Creatine Kinase (38-174) U/L Troponin I High Sens < 2.7 (<3.5-35.0) ng/L B-Natriuretic Peptide (<100) pg/mL Total Protein 6.4 L (6.5-8.0) g/dL Albumin 3.5 (3.5-5.0) g/dL Urine Color Yellow Urine Appearance Clear Urine pH 6.0 (5.0-9.0) Ur Specific [place] 1.025 (1.005-1.025) Urine Protein Negative (Neg-Trace) mg/dL Urine Glucose (UA) Negative (Negative) mg/dL Urine Ketones Negative (Negative) mg/dL Urine Blood Negative (Negative) Urine Nitrite Negative (Negative) Ur Leukocyte Esterase Negative (Negative) Urine Opiates Screen Not Detected (Not Detect) Ur Buprenorphine Scrn Not Detected (Not Detect) ng/mL Ur Oxycodone Screen Not Detected (Not Detect) ng/mL Urine Methadone Screen Not Detected (Not Detect) ng/mL Urine Fentanyl Screen Not Detected (Not Detect) Ur Barbiturates Screen Not Detected (Not Detect) Ur Phencyclidine Scrn Not Detected (Not Detect) Ur Amphetamines Screen Not Detected (Not Detect) U Benzodiazepines Scrn Not Detected (Not Detect) Urine Cocaine Screen Not Detected (Not Detect) U Marijuana (THC) Screen Not Detected (Not Detect) Ethyl Alcohol mg/dL Influenza Type A (PCR) (Negative) Influenza Type B (PCR) (Negative) RSV RNA Qual (PCR) (Negative) SARS-CoV-2 RNA (RT-PCR) (Negative) Independent Interpretation I performed an independent interpretation of an: EKG, Plain X-Ray ( XR/XR chest 1V IMPRESSION: COPD emphysematous type changes without gross acute airspace disease.) and CT Scan ( CT/CT angio chest PE protocol IMPRESSION: 1. No evidence of pulmonary emboli. 2. Severe emphysema. Because severe emphysema is an independent risk factor for lung cancer, consider entering the patient into a program of yearly lung cancer screening with low dose chest CT. ) Interpretation: Normal sinus rhythm Possible Left atrial enlargement Low voltage QRS Borderline ECG When compared with ECG of 19-Dec-2021 16:46, No significant change was found Radiology Impression Discussion of test interpretation with radiology: I have reviewed the radiologist's reading. Prescription Management I considered prescription management with: Antibiotic (Doxycycline.) Chronic Conditions Patient?s care impacted by: Other (COPD) Critical Care Time Critical Care Time Critical Care Time: Yes Total Critical Care Time: 35 Attestation: I attest to this time spent taking care of the patient, obtaining history, physical, reviewing labs, imaging, treatment of patients condition +/- specialist/hospitalist consult +/- procedure Discharge Plan Discharge Clinical Impression: Bronchitis Patient Disposition: Home, Self-Care Instructions: Acute Bronchitis (ED) Additional Instructions: Take your medications as prescribed. If you were prescribed antibiotics today, it is important that you take your medication to their entirety, do not skip any doses, do not finish them early. Follow-up with your primary care provider this week. Return to the emergency department with new or worsening symptoms. Such as fevers, chills, chest pain, shortness of breath, nausea, vomiting, dizziness, headache, vision changes, lethargy In case of emergency call 911 Your kidney function was elevated likely in the setting of poor oral intake. Please drink plenty of fluids. Please follow-up with your PCP to repeat kidney studies. CT/CT angio chest PE protocol IMPRESSION: 1. No evidence of pulmonary emboli. 2. Severe emphysema. Because severe emphysema is an independent risk factor for lung cancer, consider entering the patient into a program of yearly lung cancer screening with low dose chest CT. Due to the above results he should follow up with your PCP Prescriptions: New doxycycline hyclate 100 mg capsule 100 mg PO BID 10 Days Qty: 20 0RF albuterol sulfate 90 mcg/actuation aerosol powdr breath activated 2 inh inhalation Q4-6H PRN (Reason: shortness of breath or wheezing) Qty: 1 0RF prednisone 20 mg tablet 40 mg PO DAILY 5 Days Qty: 10 0RF Referrals: Eliza Pablo MD [Primary Care Provider, Internal Medicine] - 1 week Print Language: Congolese
[2025-02-08 10:35] LABS: D Dimer High Sensitivity 460 NG/ML
[2025-02-08 11:26] VITALS: BP 162/73; PULSE 51; RESP 16; TEMP 36.4; O2SAT 98
[2025-02-08] MEDS: iohexoL 350 MG/ML 100 ML INFUS..BTL IV (12:22)
[2025-02-08 12:56] LABS: Appearance Urine Clear; Glucose Urine UA Negative (Negative); PH 6.0 (5.0-9.0); Specific Gravity - Urine 1.025 (1.005-1.025)
[2025-02-08 13:01] LABS: Resp Syncy Virus RNA Qual PCR NEGATIVE (Negative); SARS COV2 PCR INHOUSE NEGATIVE (Negative)
[2025-02-08 13:05] LABS: Cannabinoid Screen Urine Not Detected (Not Detect)
[2025-02-08 14:02] LABS: Alanine Aminotransferase 14 U/L (0-40); Albumin Level 3.5 g/dL (3.5-5.0); Alkaline Phosphatase 52 U/L (39-117); Anion Gap 13 (12-20); Aspartate Amino Transferase 29 U/L (5-37); Blood Urea Nitrogen 13 mg/dL (9-16); Carbon Dioxide 24 mmol/L (22-29); Chloride 104 mmol/L (96-108); Creatinine Clr Calc Pharmacy 49.5; Estimated Glomerular Filt Rate > 60; Potassium 4.8 mmol/L (3.3-5.1); Sodium 136 mmol/L (135-145); Total Protein 6.4 g/dL (6.5-8.0)
[2025-02-08 14:03] LABS: Troponin-I High Sensitivity < 2.7 ng/L (<3.5-35.0)
[2025-02-08 14:12] LABS: Calcium 8.3 mg/dL (8.4-10.2)
[2025-02-08 14:13] VITALS: BP 149/85; PULSE 56; RESP 17; TEMP 36.2; O2SAT 98
[2025-02-08 14:55] VITALS: BP 149/85; PULSE 56; RESP 17; TEMP 36.2; O2SAT 98
== END 2025-02-08 14:50 | disposition home or self-care (01) ==
PROVIDERS: Physician Assistant; Emergency Provider Emergency Medicine; PCP Internal Medicine
DX: J20.9 Acute bronchitis, unspecified (principal); J43.9 Emphysema, unspecified; E86.0 Dehydration; R19.7 Diarrhea, unspecified
CPT/HCPCS: 36415; 71045; 71275; 80053; 80307; 81003; 82550; 83735; 83880; 84484; 85025; 85379; 85610; 87637; 93005; 96360; 96361; 99284; Q9967

== ENCOUNTER → 2025-02-08 08:22 | Outpatient (BNV) | payer MEDICARE, SELFPAY | PROVIDERS: Emergency Provider Emergency Medicine; PCP Internal Medicine; Visit Provider Internal Medicine Cardiovascular Disease | DX: R06.02 Shortness of breath (principal); R07.9 Chest pain, unspecified | CPT/HCPCS: 93010 ==

== ENCOUNTER → 2025-02-08 08:32 | Outpatient (BNV) | payer MEDICARE, SELFPAY | PROVIDERS: PCP Internal Medicine; Visit Provider Radiology Diagnostic Radiology | DX: J43.9 Emphysema, unspecified (principal) | CPT/HCPCS: 71275 ==